=== PATIENT | female | born 1940 | race Caucasian/White ===

== ENCOUNTER 2017-10-15 18:15 | Emergency (ER) | payer MEDICARE, MEDICAID ==
[2017-10-15 19:14] VITALS: BP 140/68
--- NOTE | 2017-10-15 19:27 | UC ---
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 Pt reports she wasD/C [facility] weeks Dx w/ Bronchitis and RX ABX and prednisone. Pt states symptoms had improved, She still has a cough, but that is her usual for her COPD. Pt states she was eating liver yesterday adn her throat became more scratchy. Pain is 8/10 w/ some white spots. Pt denies fever, SOB, chest pain, abdominal pain, AYALA, dizziness, N/V/D. - History of Current Complaint Chief Complaint: UCRespiratory Stated Complaint: SORE THROAT, FEVER Time Seen by Provider: 10/15/17 19:25 Hx Obtained From: Patient, Family/Hadoop Developer - daughter ?: No - Menopausal Onset/Duration: Gradual Onset, Lasting Days - 2 days, Still Present, Worse Since - yesterday Severity: Moderate Pain Intensity: 8 Pain Scale Used: 0-10 Numeric Cough: Nonproductive Associated Signs & Symptoms: Positive: Dysphagia, Hoarseness. Negative: Fever - Epiglottits Risk Factors Epiglottis Risk Factors: Negative - Allergies/Home Medications Allergies/Adverse Reactions: Allergies Allergy/AdvReac Type Severity Reaction Status Date / Time albuterol Allergy Shakes Verified 10/15/17 19:16 azithromycin Allergy Unknown Verified 10/15/17 19:16 Reaction Details ciprofloxacin Allergy Unknown Verified 10/15/17 19:16 Reaction Details NSAIDS (Non-Steroidal Allergy GI Upset Verified 10/15/17 19:16 Anti-Inflamma Penicillins Allergy Rash Verified 10/15/17 19:16 Home Medications: Home Medications Amlodipine Besylate [Norvasc 5 mg tab] 5 mg PO DAILY 10/15/17 [History Confirmed 10/15/17] Aspirin TAB* [Aspirin 325 MG TAB*] 325 mg PO DAILY 10/15/17 [History Confirmed 10/15/17] Budesonide 1 mg IN 10/15/17 [History] Famciclovir(NF) [Famvir(NF)] 500 mg PO 10/15/17 [History] Furosemide 20 mg PO 10/15/17 [History] Gabapentin 300 mg PO 10/15/17 [History] Insulin Detemir [Levemir Flextouch] 100 unit SC 10/15/17 [History] Insulin Lispro [Humalog Kwikpen U-100] 100 unit SC 10/15/17 [History] Levothyroxine TAB* [Synthroid TAB*] 50 mcg PO 10/15/17 [History] Montelukast Sodium TAB* [Singulair 10 MG TAB*] 10 mg PO DAILY 10/15/17 [History Confirmed 10/15/17] Nebivolol HCl [Bystolic] 10 mg PO 10/15/17 [History] Nitroglycerin [Nitrostat] 0.3 mg SL 10/15/17 [History] Omeprazole 40 mg PO 10/15/17 [History] Pravastatin (NF) [Pravachol (NF)] 40 mg PO 1700 10/15/17 [History Confirmed 12/28] Theophylline JUAN MANUEL REL CAP [Uniphyl CAP 400 MG*] 400 mg PO DAILY 10/15/17 [ History Confirmed 10/15/17] Umeclidin/Vilant 62.5 MDI(NF) [ANORO 62.5/25 Ellipta DEVICE (NF)] 1 aer IN 10/15 [History] busPIRone TAB* [Buspar TAB *] 15 mg PO BID 10/15/17 [History Confirmed 10/15/17] glipiZIDE [Glipizide] 5 mg PO 10/15/17 [History] guaiFENesin [Mucinex] 600 mg PO 10/15/17 [History] traMADol TAB* [Ultram*] 10/15/17 [History] PMH/Surg Hx/FS Hx/Imm Hx Previously Healthy: Yes Endocrine History: Diabetes, Hypothyroidism Cardiovascular History: Cardiac Disease, Hypertension Other Cardiovascular History: Quadruple bypass Respiratory History: COPD, Bronchitis GI/ History: Gastroesophageal Reflux Other Neurological History: shingles, neuropathy - Surgical History Surgical History: Yes Surgery Procedure, Year, and Place: quad bypass, choley - Family History Known Family History: Positive: Cardiac Disease, Hypertension - Social History Occupation: Retired Lives: With Family Alcohol Use: None Substance Use Type: None Smoking Status (MU): Heavy Every Day Tobacco Smoker - Immunization History Vaccination Up to Date: Yes Review of Systems Constitutional: Negative Skin: Negative Eyes: Negative ENT: Sore Throat Respiratory: Cough Cardiovascular: Negative Gastrointestinal: Negative Genitourinary: Negative Motor: Negative Neurovascular: Negative Musculoskeletal: Negative Neurological: Negative Psychological: Negative Is Patient Immunocompromised?: No All Other Systems Reviewed And Are Negative: Yes Physical Exam - Summary Physical Exam Summary: VITAL SIGNS: Reviewed. GENERAL: Patient is a well developed and nourished female who is sitting comfortable in her wheel chair w/ her O2 cannula in place w/o any acute respiratory distress. HEAD AND FACE: No signs of trauma. No ecchymosis, hematomas or skull depressions. No sinus tenderness. EYES: PERRLA, EOMI x 2, No injected conjunctiva, no nystagmus. No photophobia. EARS: Hearing grossly intact. Ear canals and tympanic membranes are within normal limits. MOUTH: Positive pharynx with erythema, white exudates, no palatal petechiae. B/ L tonsillar enlargement with white cheese exudate. Uvula in midline. NECK: Supple, trachea is midline, Positive anterior cervical lymphadenopathy, no JVD, no carotid bruit, no c-spine tenderness, neck with full ROM. No meningeal signs, no Kernig's or brudzinskis signs. CHEST: Symmetric, no tenderness at palpation LUNGS: Clear to auscultation bilaterally. No wheezing or crackles. CVS: Regular rate and rhythm, S1 and S2 present, no murmurs or gallops appreciated. ABDOMEN: Soft, non-tender. No signs of distention. No rebound no guarding, and no masses palpated. Bowel sounds are normal. EXTREMITIES: FROM in all major joints, no edema, no cyanosis or clubbing. NEURO: Alert and oriented x 3. No acute neurological deficits. Speech is normal and follows commands. 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 Pt reports she wasD/C form the [facility] weeks Dx w/ Bronchitis and RX ABX and prednisone. Pt states symptoms had improved, She still has a cough, but that is her usual for her COPD. Pt states she was eating liver yesterday adn her throat became more scratchy. Pain is 8/10 w/ some white spots. Pt denies fever, SOB, chest pain, abdominal pain, AYALA, dizziness, N/V/D. Hx obtained. Pt w/ oral candidiasis on examination. Rapdi strep ordered: negative. Pt Rx Nystatin Swish and swallow and Peridex to alleviate symptoms. Pt and daughter If symptoms do not improve or worsen advised to return to the urgent care or f/u with her PCP for further evaluation and treatment. Daughter and Pt understood and agreed - Differential Dx/Diagnosis Differential Diagnosis/HQI/PQRI: Laryngitis, Pharyngitis, Sinusitis, URI Provider Diagnoses: 1- Oral Candidiasis Discharge - Discharge Plan Condition: Stable Disposition: HOME Prescriptions: Chlorhexidine MOUTHWASH 0.12%* [Peridex Mouth Wash 0.12%*] 15 ml .SEE ORDER TID #1 oral.soln Nystatin SUSPENSION* 500,000 units SWISH SWAL QID #1 bottle Patient Education Materials: Oral Candidiasis (ED) Referrals: Cari Coppola PA [Primary Care Provider] - 3 Days Additional Instructions: 1-Please take Tylenol PO q4-6hrs hrs prn as instructed after meals to alleviate pain and swelling. Increase fluid intake, eat well, rest 2- Take the mouth wash and the Nystatin as directed to alleviate symptoms 3-Please f/u with your PCP in 2-36 days for further evaluation and treatment check if symptoms are improving
== END 2017-10-15 20:04 | disposition home or self-care (01) ==
LOC: UCCORT 18:15
DX: B37.0 Candidal stomatitis (principal); R05 Cough; E11.9 Type 2 diabetes mellitus without complications; Z79.4 Long term (current) use of insulin; Z79.84 Long term (current) use of oral hypoglycemic drugs; E03.9 Hypothyroidism, unspecified; I11.9 Hypertensive heart disease without heart failure; Z95.1 Presence of aortocoronary bypass graft; J44.9 Chronic obstructive pulmonary disease, unspecified; K21.9 Gastro-esophageal reflux disease without esophagitis; Z90.49 Acquired absence of other specified parts of digestive tract; Z88.6 Allergy status to analgesic agent; Z88.1 Allergy status to other antibiotic agents; Z88.0 Allergy status to penicillin; Z88.8 Allergy status to other drugs, medicaments and biological substances; F17.210 Nicotine dependence, cigarettes, uncomplicated
CPT/HCPCS: 87651; 99202; G0463